=== PATIENT | female | born 1990 | race American Indian/Alaskan Native ===

== ENCOUNTER 2019-08-05 20:19 | Emergency (ER) | payer SELFPAY ==
[2019-08-05 20:27] VITALS: BP 126/71
--- NOTE | 2019-08-05 20:59 | Emergency Department Report ---
Blank Doc - Documentation Documentation: 29-year-old female that presents with pelvic pain. Denies any other symptoms. This initial assessment/diagnostic orders/clinical plan/treatment(s) is/are subject to change based on patient's health status, clinical progression and re- assessment by fellow clinical providers in the ED. Further treatment and workup at subsequent clinical providers discretion. Patient/guardians urged not to elope from the ED as their condition may be serious if not clinically assessed and managed. Initial orders include: 1- Patient sent to [facility] for further evaluation and treatment 2- [facility]A
[2019-08-05 22:19] LABS: Bilirubin,Urine NEG (Negative); Blood,Urine NEG (Negative); Color,Urine Yellow (Yellow); Mucus,Urine FEW /HPF; Protein,Urine <15 mg/dL mg/dL (Negative); Urobilinogen,Urine < 2.0 mg/dL (<2.0)
== END 2019-08-06 02:20 | disposition left against medical advice (07) ==
LOC: ED 20:19
DX: R10.2 Pelvic and perineal pain (principal)
CPT/HCPCS: 81001; 87076; 87086; 87186